=== PATIENT | female | born 1975 | race Caucasian/White ===

== ENCOUNTER 2017-08-06 08:15 | Outpatient (CLI) | payer BC | END 2017-08-06 08:16 | disposition home or self-care (01) | LOC: BICMAMMO 08:15 | PROVIDERS: ATTEND Internal Medicine | DX: Z12.31 Encounter for screening mammogram for malignant neoplasm of breast (principal) | CPT/HCPCS: 77063; 77067; G0202 ==

== ENCOUNTER 2018-10-20 08:40 | Outpatient (CLI) | payer BC ==
--- NOTE | 2018-10-21 14:59 | MMO ---
MAMMOGRAM FINDINGS: There are scattered fibroglandular densities. There are no suspicious masses, calcifications or areas of architectural distortion. IMPRESSION: THERE IS NO MAMMOGRAPHIC EVIDENCE OF MALIGNANCY. A ROUTINE FOLLOW-UP MAMMOGRAM IN 1 YEAR IS RECOMMENDED. ACR BI-RADS Category 1 - Negative
== END 2018-10-20 08:41 | disposition home or self-care (01) ==
LOC: BICMAMMO 08:40
PROVIDERS: ATTEND Internal Medicine
DX: Z12.31 Encounter for screening mammogram for malignant neoplasm of breast (principal)
CPT/HCPCS: 77063; 77067

== ENCOUNTER 2020-05-19 11:07 | Outpatient (CLI) | payer BC ==
--- NOTE | 2020-05-19 11:35 | MMO ---
Bilateral MAMMO Bilat Screen [facility]. CLINICAL HISTORY: Patient is 45 years old and is seen for screening. The patient has no family history of breast cancer. The patient has no personal history of cancer. VIEWS: The views performed were: . FILMS COMPARED: The present examination has been compared to prior imaging studies performed at [facility] on 03/12/2016, 08/06/2017 and 10/20/2018. This study has been interpreted with the assistance of computer-aided detection. MAMMOGRAM FINDINGS: There are scattered fibroglandular densities. There is an asymmetry seen in the CC view only seen in the posterior central region of the left breast. In the right breast, there are no suspicious masses, calcifications or areas of architectural distortion. IMPRESSION: ASYMMETRY IN THE LEFT BREAST REQUIRES ADDITIONAL EVALUATION. RECOMMEND DIAGNOSTIC MAMMOGRAM. ULTRASOUND MAY ALSO PROVE USEFUL AT RECALL. THE RESULTS OF THIS EXAM WERE SENT TO THE PATIENT. ACR BI-RADS Category 0 - Incomplete: Need additional imaging evaluation. [facility] will notify the patient of the need for additional imaging services. MAMMOGRAPHY NOTE: 1. A negative mammogram report should not delay a biopsy if a dominant of clinically suspicious mass is present. 2. Approximately 10% to 15% of breast cancers are not detected by mammography. 3. Adenosis and dense breasts may obscure an underlying neoplasm. Reported by: RASHAUN MENDOZA MD Electonically Signed: [id number]
== END 2020-05-19 11:08 | disposition home or self-care (01) ==
LOC: BICMAMMO 11:07
PROVIDERS: ATTEND Obstetrics & Gynecology
DX: Z12.31 Encounter for screening mammogram for malignant neoplasm of breast (principal); N64.89 Other specified disorders of breast
CPT/HCPCS: 77063; 77067

== ENCOUNTER 2020-05-23 12:53 | Outpatient (CLI) | payer BC ==
--- NOTE | 2020-05-23 13:47 | MMO ---
Left Breast MAMMO Unilat Diag DDI LT+ZAIDA. CLINICAL HISTORY: Patient is 45 years old and is seen for diagnostic exam. The patient has no family history of breast cancer. The patient has no personal history of cancer. VIEWS: The views performed were: left craniocaudal with tomosynthesis; left mediolateral oblique with tomosynthesis; and left mediolateral with tomosynthesis. FILMS COMPARED: The present examination has been compared to prior imaging studies performed at [facility] on 08/06/2017, 10/20/2018, 05/19/2020 and 05/23/2020. This study has been interpreted with the assistance of computer-aided detection. MAMMOGRAM FINDINGS: There are scattered fibroglandular densities. Additional views were performed. The previously seen abnormality is not definitely seen on the current study. US shows no definite abnormality. There are no suspicious masses, suspicious calcifications, or new areas of architectural distortion. IMPRESSION: THERE IS NO MAMMOGRAPHIC EVIDENCE OF MALIGNANCY. A ROUTINE FOLLOW-UP MAMMOGRAM IN 1 YEAR IS RECOMMENDED. THE RESULTS OF THIS EXAM WERE SENT TO THE PATIENT. ACR BI-RADS Category 2 - Benign finding MAMMOGRAPHY NOTE: 1. A negative mammogram report should not delay a biopsy if a dominant of clinically suspicious mass is present. 2. Approximately 10% to 15% of breast cancers are not detected by mammography. 3. Adenosis and dense breasts may obscure an underlying neoplasm. Reported by: BELIA GOYAL MD Electonically Signed: [id number]
--- NOTE | 2020-05-23 14:23 | ULT ---
LIMITED LEFT BREAST ULTRASOUND: Date: 05/23/2020 HISTORY: Abnormal mammogram. FINDINGS: Correlation is made with mammograms of 05/19/2020 and today. Sonographic evaluation of the retroareolar and central aspect of the left breast demonstrates no abno rmality. IMPRESSION: BI-RADS Category 2 - Benign findings. Return to annual mammographic screening. POS: OFF
== END 2020-05-23 12:54 | disposition home or self-care (01) ==
LOC: BICMAMMO 12:53
PROVIDERS: ATTEND Obstetrics & Gynecology
DX: R92.2 Inconclusive mammogram (principal)
CPT/HCPCS: G0279

== ENCOUNTER 2021-05-22 08:29 | Outpatient (CLI) | payer BC | END 2021-05-22 08:30 | disposition home or self-care (01) | LOC: BICMAMMO 08:29 | PROVIDERS: ATTEND Internal Medicine | DX: Z12.31 Encounter for screening mammogram for malignant neoplasm of breast (principal) | CPT/HCPCS: 77063; 77067 ==

== ENCOUNTER 2022-09-14 08:52 | Outpatient (CLI) | payer BC | END 2022-09-14 08:53 | disposition home or self-care (01) | LOC: BICMAMMO 08:52 | PROVIDERS: ATTEND Internal Medicine | DX: Z12.31 Encounter for screening mammogram for malignant neoplasm of breast (principal) | CPT/HCPCS: 77063; 77067 ==